=== PATIENT | female | born 1960 | race Caucasian/White ===

== ENCOUNTER 2023-05-11 13:29 | Emergency (ER) | payer MEDICARE, SELFPAY ==
[2023-05-11 13:33] VITALS: BP 146/89; PULSE 105; RESP 18; TEMP 36.6; O2SAT 97; BMI 22.0
--- NOTE | 2023-05-11 13:50 | CT_ITS ---
The [address] [address] Patient Name: SHAWNA SANTIAGO MRN: [id number] date: 1960 Sex: F Assigned Patient Location: ER Current Patient Location: ED.MAIN Accession/Order Number: [id number] Exam Date: 05/11/2023 13:45 Report Date: 05/11/2023 14:25 At the request of: RUCHI AGUIRRE Procedure: CT head/brain wo con EXAMINATION: CT head/brain wo con HISTORY: fell down 2 steps COMPARISON: None. TECHNIQUE: CT scan of the head was performed without IV contrast. CT dose reduction technique was used, including Automated Exposure Control. FINDINGS: There are no extra-axial fluid collections. There is no mass effect or midline shift. The cerebral ventricles and sulci are normal. The brain demonstrates normal attenuation. basal cisterns are patent. There is bilateral subcortical and deep periventricular white matter chronic microvascular ischemia. There is right frontal scalp edema and hematoma. Bilateral orbits, paranasal sinuses and mastoid air cells are patent. No skull base fracture. CT/CT head/brain wo con IMPRESSION: No intracranial hemorrhage. Right frontal scalp edema and hematoma. Electronically authenticated by: HOMER DELGADILLO Date: 05/11/2023 14:25
--- NOTE | 2023-05-11 14:13 | ED_ITS ---
HPI - Head Injury General Chief complaint: Head Injury Stated complaint: HEAD INJURY/ FALL Time Seen by Provider: 05/11/23 14:05 Source: patient and family Mode of arrival: Wheelchair Limitations: no limitations History of Present Illness HPI Narrative: patient is a 63-year-old female who presents to the emergency department for the evaluation of an injury to the head that occurred at home just prior to arrival. Patient has a history of neuropathy in her legs and states she was walking down her basement stairs when she missed the last two steps and fell forward, hitting her head. She presents with an abrasion to the nasal bridge and hematoma to the right frontal scalp with an associated abrasion. Unknown last tetanus. She takes aspirin daily but no other blood thinners. states she was walking right behind her, she did not have any loss of consciousness or altered mental status. She has been able to ambulate since falling. She denies any pain to the neck or back. No changes in her vision. She denies any other dental injury. no medications taken prior to arrival. Related Data Allergies Allergy/AdvReac Type Severity Reaction Status Date / Time No Known Drug Allergies Allergy Verified 05/11/23 13:39 Review of Systems ROS Constitutional Denies: fever or chills Eyes Denies: change in vision Ears, nose, mouth, and throat Denies: neck pain Cardiovascular Denies: chest pain Respiratory Denies: shortness of breath or cough Musculoskeletal Denies: back pain or neck pain Neurological Denies: headache Hematologic/Lymphatic Denies: easy bruising Exam Narrative Exam Narrative: Gen.: Awake, alert, in no distress Head: Normocephalic, atraumatic ENT: Moist mucous membranes with pupils equal round and reactive. Moderate hematoma to the right frontal scalp with central abrasion, no deep laceration and small abrasion noted to the nasal bridge between the eyes with no deep laceration or active bleeding. No injury to the mouth or jaw. C-spine is nontender with full range of motion Respiratory: No respiratory distress, lungs clear bilaterally Cardio: Regular rate and rhythm Back: no bony tenderness of the C-spine, T-spine or L-spine Extremities: Moves extremities equally, no injuries noted Psych: Normal mood and affect Neuro: No focal neuro deficit Skin: Warm, dry Constitutional Vital Signs, click to edit/add: Last Vital Signs Temp 97.8 F 05/11/23 13:33 Pulse 105 H 07/17/23 13:33 Resp 18 05/11/23 13:33 BP 146/89 H 05/11/23 13:33 Pulse Ox 97 05/11/23 13:33 O2 Del Method Room Air 05/11/23 13:33 Course Vital Signs Vital signs: Vital Signs Temperature 97.8 F 05/11/23 13:33 Pulse Rate 105 H 05/11/23 13:33 Respiratory Rate 18 05/11/23 13:33 Blood Pressure 146/89 H 05/11/23 13:33 Pulse Oximetry 97 05/11/23 13:33 Oxygen Delivery Method Room Air 05/11/23 13:33 Temperature 97.8 F 05/11/23 13:33 Pulse Rate 105 H 05/11/23 13:33 Respiratory Rate 18 05/11/23 13:33 Blood Pressure 146/89 H 05/11/23 13:33 Pulse Oximetry 97 05/11/23 13:33 Oxygen Delivery Method Room Air 05/11/23 13:33 MDM - Head Injury MDM Narrative Medical decision making narrative: patient was sent for CT of the brain from the [facility], on exam, she is awake and alert in no distress. She declined any medication for pain or nausea. Tetanus is updated in the Emergency Room for the abrasions to the scalp and nasal bridge. CT is unremarkable and the patient is discharged home with closed head injury instructions. Wound care encouraged. Bacitracin applied in the Emergency Room. Rest, ice to the area of injury to the frontal scalp. Tylenol as needed for home. Return to the Emergency Room if symptoms change or worsen Medical Records Attestation: I reviewed the patient's medical records. Imaging Data CT scan - head: Attestation: I have reviewed the pertinent imaging results. Radiologist's impression: Procedure: CT head/brain wo con EXAMINATION: CT head/brain wo con HISTORY: fell down 2 steps COMPARISON: None. TECHNIQUE: CT scan of the head was performed without IV contrast. CT dose reduction technique was used, including Automated Exposure Control. FINDINGS: There are no extra-axial fluid collections. There is no mass effect or midline shift. The cerebral ventricles and sulci are normal. The brain demonstrates normal attenuation. basal cisterns are patent. There is bilateral subcortical and deep periventricular white matter chronic microvascular ischemia. There is right frontal scalp edema and hematoma. Bilateral orbits, paranasal sinuses and mastoid air cells are patent. No skull base fracture. IMPRESSION: No intracranial hemorrhage. Right frontal scalp edema and hematoma. Electronically authenticated by: HOMER DELGADILLO Date: 05/11/2023 14:25 Discharge Plan Discharge Chief Complaint: Head Injury Clinical Impression: Closed head injury, Contusion of scalp, Abrasion Patient Disposition: Home, Self-Care Time of Disposition Decision: 14:32 Condition: Good Instructions: Head Injury (ED), Abrasion (ED), Scalp Contusion in Adults (ED) Stand Alone Forms: Portal Instructions Referrals: Physician,Non-Staff, MD [Primary Care Provider] - 1 week
[2023-05-11] MEDS: ADACEL DIPH,PERTUSS(ACELL),TET VAC/PF 0.5 ML ADULT SYRINGE IM (14:56)
[2023-05-11] MEDS: BACITRACIN 0.9 GM PACKET 1 PACKET TOPICAL (14:57)
== END 2023-05-11 15:11 | disposition home or self-care (01) ==
PROVIDERS: Emergency Provider Emergency Medicine
DX: S00.03XA Contusion of scalp, initial encounter (principal); S00.01XA Abrasion of scalp, initial encounter; S09.8XXA Other specified injuries of head, initial encounter; Z23 Encounter for immunization; W10.9XXA Fall (on) (from) unspecified stairs and steps, initial encounter; Z79.82 Long term (current) use of aspirin
CPT/HCPCS: 70450; 90471; 90715; 99285

== ENCOUNTER 2024-10-27 19:11 | Emergency (ER) | payer MEDICARE, SELFPAY ==
[2024-10-27] VITALS (28 sets, daily range): BP systolic 115–123; BP diastolic 58–62; PULSE 95–107; TEMP 36.5; O2SAT 99; BMI 25.3
--- NOTE | 2024-10-27 19:55 | ECG_ITS ---
The [facility] Test Date: 2024-10-27 Pat Name: SHAWNA SANTIAGO Department: Room: - Gender: Female Receptionist: : 1960 Requested By: [id number] Order Number: [id number] Reading MD: DELMY GUERRERO Measurements Intervals [place] Rate: 96 P: 47 LA: 162 QRS: -2 QRSD: 148 T: 155 QT: 416 QTc: 469 Interpretive Statements 1100 Sinus rhythm 2550 Left bundle branch block with secondary ST/T wave changes 9150 abnormal ECG No previous ECG available for comparison Electronically Signed On 10-27-2024 20:44:59 EST by DELMY GUERRERO
--- NOTE | 2024-10-27 19:55 | XR_ITS ---
The [address] [address] Patient Name: SHAWNA SANTIAGO MRN: [id number] date: 1960 Sex: F Assigned Patient Location: ER Current Patient Location: ED.MAIN Accession/Order Number: [id number] Exam Date: 10/27/2024 08:08 Report Date: 10/27/2024 21:39 At the request of: SHAHID DURAN Procedure: XR chest 1V EXAMINATION: XR chest 1V HISTORY: Shortness of breath COMPARISON: XR chest 09/23/2021 FINDINGS: LUNGS: Dense opacities partially obscuring the lower right hemithorax and the lower two thirds of the left hemithorax. VASCULATURE: No increased pulmonary vasculature. PLEURA: No pneumothorax, effusion, or pleural thickening. CARDIAC: No cardiomegaly or cardiac silhouette abnormality. MEDIASTINUM: Prior sternotomy. No abnormal widening. BONES: No fracture or visible bone lesion. OTHER: Negative. XR/XR chest 1V IMPRESSION: 1. Marked bilateral pulmonary infiltrates. This may be exaggerated by anterior soft tissue summation artifact. Consider CT chest if there remains clinical concern. Electronically authenticated by: TRUE MURPHY Date: 10/27/2024 21:39
--- NOTE | 2024-10-27 19:55 | CT_ITS ---
The [address] [address] Patient Name: SHAWNA SANTIAGO MRN: [id number] date: 1960 Sex: F Assigned Patient Location: ER Current Patient Location: Accession/Order Number: [id number] Exam Date: 10/27/2024 20:10 Report Date: 10/27/2024 21:42 At the request of: SHAHID DURAN Procedure: CT head/brain wo con EXAMINATION: CT head/brain wo con HISTORY: Hallucinations, hx metastatic CA COMPARISON: CT head 05/11/2023 TECHNIQUE: Axial CT images were obtained without IV contrast. Dose reduction techniques were achieved by using automated exposure control and/or adjustment of mA and/or kV according to patient size and/or use of iterative reconstruction technique. FINDINGS: BRAIN: No edema, hemorrhage, mass, acute infarction, or inappropriate atrophy. CSF SPACES: No hydrocephalus, subarachnoid hemorrhage, or mass. Appropriate for age. SKULL: No fracture, mass, or other significant visible lesion. SINUSES: No significant mucosal thickening or fluid on the limited views. ORBITS: No appreciable abnormality on the limited views. OTHER: Negative CT/CT head/brain wo con IMPRESSION: 1. No appreciable acute abnormality of the brain. 2. No CT evidence of metastatic disease. Electronically authenticated by: TRUE MURPHY Date: 10/27/2024 21:42
--- NOTE | 2024-10-27 20:02 | ED.GENADUL1 ---
Documented by User: RADHA Bedoya 10/27/24 22:33 HPI HPI - General Adult General Chief complaint: Shortness of Breath/Dyspnea Stated complaint: hallucinations Time Seen by Provider: 10/27/24 19:36 Source: patient and family Mode of arrival: Wheelchair Limitations: no limitations History of Present Illness HPI narrative: Patient is a 64-year-old female with a remote history of breast cancer who was not being treated for cancer up until 3 weeks ago when she started to develop jaundice. She was hospitalized in [facility]. She initially had an ultrasound of the liver, MRI of the abdomen and a CT scan. Patient was found to have metastatic disease of the liver. She had a follow-up MRCP this week while hospitalized that did not show any gallbladder disease or bile dilation. She continues to have progressive jaundice, decreased oral intake and shortness of breath on exertion. She had an ultrasound-guided biopsy of the liver performed while hospitalized, family is not aware of the results of this biopsy, they were supposed to see the doctor tomorrow. Since yesterday, patient has been having intermittent visual and auditory hallucinations. She occasionally has a mild headache but has not had any severe pain, visual changes, chest pain. She has not had any other recent illness. states that the patient has not been eating and drinking well. She has not had any urinary symptoms, vomiting or diarrhea. She had a bilateral mastectomy related to the breast cancer previously. Related Data Allergies Allergy/AdvReac Type Severity Reaction Status Date / Time adhesive tape AdvReac Mild Rash Verified 10/27/24 19:54 amlodipine AdvReac Mild rash Verified 10/27/24 19:54 clindamycin AdvReac Mild Rash Verified 10/27/24 19:54 piperacillin (From Zosyn) AdvReac Mild Rash Verified 10/27/24 19:54 tazobactam (From Zosyn) AdvReac Mild Rash Verified 10/27/24 19:54 vanadium AdvReac Unknown Uncoded 10/27/24 19:54 Opioid HPI Opioid Management Most Recent Opioid Data: Last Pain Scale 6 05/11/23 14:09 05/11/23 Review of Systems ROS Constitutional Denies: fever or chills Ears, nose, mouth, and throat Denies: throat pain or nasal congestion Cardiovascular Denies: chest pain Respiratory Reports: shortness of breath; Denies: cough Gastrointestinal Denies: abdominal pain, nausea, vomiting or diarrhea Integumentary/Breast Reports: changes in skin color and jaundice; Denies: rash Neurological Reports: headache; Denies: numbness in extremities, weakness in extremities or dizziness Psychiatric Reports: visual hallucinations and auditory hallucinations Hematologic/Lymphatic Denies: easy bruising or easy bleeding Exam Narrative Exam Narrative: Gen.: Awake, alert, in no distress, pleasant female noted to be jaundice with scleral icterus Head: Normocephalic, atraumatic ENT: Moist mucous membranes Respiratory: No respiratory distress, lungs clear bilaterally Cardio: Regular rate and rhythm Gastrointestinal: Abdomen is soft, nondistended and nontender to palpation; no ascites palpated Extremities: Moves extremities equally, no injuries noted Psych: Normal mood and affect Neuro: No focal neuro deficit Skin: Warm, dry, intact Constitutional Vital Signs, click to edit/add: Last Vital Signs Temp 97.7 F 10/27/24 19:24 Pulse 101 H 10/28/24 00:10 Resp 29 H 10/28/24 00:10 BP 115/58 10/27/24 23:30 Pulse Ox 99 10/27/24 19:24 O2 Del Method Room Air 10/27/24 19:24 Course Vital Signs Vital signs: Vital Signs Temperature 97.7 F 10/27/24 19:24 Pulse Rate 95 H 10/27/24 19:24 Respiratory Rate 18 10/27/24 19:24 Blood Pressure 115/59 10/27/24 19:24 Pulse Oximetry 99 10/27/24 19:24 Oxygen Delivery Method Room Air 10/27/24 19:24 Temperature 97.7 F 10/27/24 19:24 Pulse Rate 101 H 10/28/24 00:10 Respiratory Rate 29 H 10/28/24 00:10 Blood Pressure 115/58 10/27/24 23:30 Pulse Oximetry 99 10/27/24 19:24 Oxygen Delivery Method Room Air 10/27/24 19:24 Medical Decision Making MDM Narrative Medical decision making narrative: 2230: On arrival to the emergency department, patient is hemodynamically stable. Her at bedside has results from her MyChart in the [facility] system on his phone for me to review, this shows that in the last week, the patient has had an ultrasound of the abdomen, MRI of the abdomen, MRCP as well as a CT scan of the abdomen and pelvis and an ultrasound-guided biopsy. Patient's pathology report is on the phone as well which has not been reviewed by the patient or her family, this states that the patient has carcinoma in the liver, consistent with liver cancer and her jaundice. Ultrasound-guided IV was placed, however we had significant difficulty obtaining a blood draw for this patient. Attending physician was able to draw labs. The majority of the labs are pending at this time. Patient has no chest pain in the emergency department, however she is noted to have a left bundle branch block on her EKG with no previous comparison at this facility as well as infiltrates noted on the chest x-ray. CT of the brain with no evidence of metastasis. Radiology recommends a follow-up CT of the chest which is pending at this time after the patient's kidney function results. Anticipate this patient will require transfer back to the [facility] for further evaluation and treatment as a tertiary care setting. Patient is turned over to attending physician at this time. SHARED APC VISIT, PHYSICIAN ATTESTATION: [id number] I performed a substantive part of the MDM during the patient?s E/M visit. I personally evaluated and examined the patient. I personally made or approved the documented management plan and acknowledge its risk of complications. Medical Records Medical records reviewed: Yes I reviewed the patient's medical records Lab Data Lab results reviewed: Yes I reviewed the patient's lab results Labs: Lab Results 10/27/24 10/27/24 10/27/24 Range/Units 21:28 22:00 22:06 WBC 10.3 (4.0-11.0) 10^3/uL RBC 3.19 L (4.20-5.40) 10^6/uL Hgb 11.1 L (12.0-16.0) g/dL Hct 33.7 L (36.0-48.0) % MCV 105.6 H (81.0-99.0) fL MCH 34.8 H (26.7-34.0) pg MCHC 32.9 (29.9-35.2) g/dL RDW 19.1 H (11.0-15.0) % Plt Count 299 (150-450) 10^3/uL MPV 10.1 (9.5-13.5) fL Neut % (Auto) 77.9 H (43.0-75.0) % Lymph % (Auto) 12.5 L (20.5-60.0) % Camp % (Auto) 7.7 (1.7-12.0) % Eos % (Auto) 0.6 L (0.9-7.0) % Baso % (Auto) 0.2 (0.2-2.0) % Neut # (Auto) 8.0 H (1.4-6.5) 10^3/uL Lymph # (Auto) 1.3 (1.2-3.8) 10^3/uL Camp # (Auto) 0.8 (0.3-0.8) 10^3/uL Eos # (Auto) 0.1 (0.0-0.7) 10^3/uL Baso # (Auto) 0.0 (0.0-0.1) 10^3/uL Abs Immat Gran (auto) 0.11 H (0.00-0.03) 10^3/uL Imm/Tot Granulo (auto) 1.1 H (0.0-0.5) % PT 12.1 H (9.0-11.6) sec INR 1.16 APTT 28.0 (22.3-36.2) sec VBG pH 7.264 L (7.330-7.430) VBG pCO2 36.3 L (40.0-52.0) mmHg Sodium 130 L (136-145) mmol/L Potassium 6.1 H* (3.5-5.1) mmol/L Chloride 98 (98-107) mmol/L Carbon Dioxide 18.1 L (21.0-32.0) mmol/L Anion Gap 20.0 BUN 59.0 H (7.0-18.0) mg/dL Creatinine 2.12 H (0.55-1.02) mg/dL Est GFR ( Amer) 28 L (>=60 mL/min/1.73m^2) Est GFR (Non-Af Amer) 23 L (>=60 mL/min/1.73m^2) BUN/Creatinine Ratio 27.8 Glucose 82 (74-106) mg/dL Calcium 9.4 (8.5-10.1) mg/dL Total Bilirubin 19.1 H (0.2-1.0) mg/dL Direct Bilirubin 14.8 H* (0.0-0.2) mg/dL AST 452 H (15-37) U/L ALT 158 H (14-59) U/L Alkaline Phosphatase 954 H (46-116) U/L Ammonia 47 H* (11-32) umol/L Troponin I High Sens 21.9 (4.0-51.3) pg/mL NT-Pro-B Natriuret Pep 7412.0 H* (<=900.0) pg/mL Total Protein 6.2 L (6.4-8.2) g/dL Albumin 2.3 L (3.4-5.0) g/dL Globulin 3.9 g/dL Albumin/Globulin Ratio 0.6 Urine Color Dk. orange (YELLOW) Urine Clarity Clear (CLEAR) Urine pH 5.5 (5.0-9.0) Ur Specific [place] 1.025 (1.005-1.025) Urine Protein Trace (NEG/TRACE) mg/dL Urine Glucose (UA) Negative (NEGATIVE) mg/dL Urine Ketones Negative (NEGATIVE) mg/dL Urine Occult Blood Negative (NEGATIVE) Urine Nitrite Negative (NEGATIVE) Urine Bilirubin Large A (NEGATIVE) Urine Urobilinogen 1.0 (0.2-1.0) EU/dL Ur Leukocyte Esterase Trace A (NEGATIVE) Urine RBC None seen (0-2) #/HPF Urine WBC 2-5 A (NONE SEEN) #/HPF Ur Squamous Epith Cells Moderate A (NONE/RARE) #/LPF Urine Crystals None seen (None Seen) #/HPF Urine Bacteria Large A (NONE SEEN) #/HPF Urine Casts None seen (NONE SEEN) #/LPF Urine Mucus None seen (NONE SEEN) Ur Culture Indicated? Yes Imaging Data CT scan - head: Attestation: I have reviewed the pertinent imaging results. Radiologist's impression: ITS Impressions Chest X-Ray 10/27/24 19:55 IMPRESSION: 1. Marked bilateral pulmonary infiltrates. This may be exaggerated by anterior soft tissue summation artifact. Consider CT chest if there remains clinical concern. Electronically authenticated by: TRUE MURPHY Date: 10/27/2024 21:[address] 10/27/24 19:55 IMPRESSION: 1. No appreciable acute abnormality of the brain. 2. No CT evidence of metastatic disease. Electronically authenticated by: TRUE MURPHY Date: 10/27/2024 21:42 ECG Data Attestation: I personally reviewed and interpreted this ECG as follows: (Will sign this rhythm at a rate of 96 with a left bundle branch block, no previous EKG for comparison. No acute ST elevation or ectopy. EKG reviewed by attending physician) Discharge Plan Discharge Chief Complaint: Shortness of Breath/Dyspnea Clinical Impression: Hallucinations, Acute hepatic encephalopathy, Acute kidney injury, Hyperkalemia Patient Disposition: Home, Self-Care Time of Disposition Decision: 00:48 Print Language: Maldivian Instructions: Acute Kidney Injury (DC), Hepatic Encephalopathy (DC), Hyperkalemia (ED), Hallucinations (ED) Referrals: Physician,Non-Staff, MD [Primary Care Provider] - 1 week Documented by User: Cynthia Andrew MD 10/28/24 01:08 HPI HPI - General Adult General Chief complaint: Shortness of Breath/Dyspnea Stated complaint: hallucinations Time Seen by Provider: 10/27/24 19:36 Related Data Allergies Allergy/AdvReac Type Severity Reaction Status Date / Time adhesive tape AdvReac Mild Rash Verified 10/27/24 19:54 amlodipine AdvReac Mild rash Verified 10/27/24 19:54 clindamycin AdvReac Mild Rash Verified 10/27/24 19:54 piperacillin (From Zosyn) AdvReac Mild Rash Verified 10/27/24 19:54 tazobactam (From Zosyn) AdvReac Mild Rash Verified 10/27/24 19:54 vanadium AdvReac Unknown Uncoded 10/27/24 19:54 Opioid HPI Opioid Management Most Recent Opioid Data: Last Pain Scale 6 05/11/23 14:09 05/11/23 Exam Constitutional Vital Signs, click to edit/add: Last Vital Signs Temp 97.7 F 10/27/24 19:24 Pulse 101 H 10/28/24 00:10 Resp 29 H 10/28/24 00:10 BP 115/58 10/27/24 23:30 Pulse Ox 99 10/27/24 19:24 O2 Del Method Room Air 10/27/24 19:24 Course Vital Signs Vital signs: Vital Signs Temperature 97.7 F 10/27/24 19:24 Pulse Rate 95 H 10/27/24 19:24 Respiratory Rate 18 10/27/24 19:24 Blood Pressure 115/59 10/27/24 19:24 Pulse Oximetry 99 10/27/24 19:24 Oxygen Delivery Method Room Air 10/27/24 19:24 Temperature 97.7 F 10/27/24 19:24 Pulse Rate 101 H 10/28/24 00:10 Respiratory Rate 29 H 10/28/24 00:10 Blood Pressure 115/58 10/27/24 23:30 Pulse Oximetry 99 10/27/24 19:24 Oxygen Delivery Method Room Air 10/27/24 19:24 Medical Decision Making MDM Narrative Medical decision making narrative: 2230: On arrival to the emergency department, patient is hemodynamically stable. Her at bedside has results from her MyChart in the [facility] on his phone for me to review, this shows that in the last week, the patient has had an ultrasound of the abdomen, MRI of the abdomen, MRCP as well as a CT scan of the abdomen and pelvis and an ultrasound-guided biopsy. Patient's pathology report is on the phone as well which has not been reviewed by the patient or her family, this states that the patient has carcinoma in the liver, consistent with liver cancer and her jaundice. Ultrasound-guided IV was placed, however we had significant difficulty obtaining a blood draw for this patient. Attending physician was able to draw labs. The majority of the labs are pending at this time. Patient has no chest pain in the emergency department, however she is noted to have a left bundle branch block on her EKG with no previous comparison at this facility as well as infiltrates noted on the chest x-ray. CT of the brain with no evidence of metastasis. Radiology recommends a follow-up CT of the chest which is pending at this time after the patient's kidney function results. Anticipate this patient will require transfer back to the [facility] for further evaluation and treatment as a tertiary care setting. Patient is turned over to attending physician at this time. SHARED APC VISIT, PHYSICIAN ATTESTATION: [id number] I performed a substantive part of the MDM during the patient?s E/M visit. I personally evaluated and examined the patient. I personally made or approved the documented management plan and acknowledge its risk of complications. This patient was seen and evaluated in conjunction with the physician financial planning assistant. She presents for evaluation of hallucinations which have been intermittent. She has had 2 brief episodes of visual hallucinations while in the emergency department. Arterial blood was taken by myself for testing as blood draws through her IVs were difficult. The results of her labs from approximately 1 week ago are compared to the labs today. She has a stable hemoglobin of 11.1 and a white count of 10.3. Platelets are normal at 299 her sodium a week ago was 134 and potassium was 4.3. Chloride is 105 and CO2 is 18. BUN was 20 and creatinine was 1.2. Glucose at that time was 79. Her calcium at that time was 8.4 and bilirubin is 8.7. Her alkaline phosphatase was 866, ALT was 87 and AST is 218. Today her sodium is 130. Potassium is elevated at 6.1. Chloride was 98 Direct bilirubin is 14.8. Total bilirubin 19.1. Her AST today is 452, ALT is 158 and alkaline phosphatase is 954. Her ammonia was 47. Troponin was normal. BNP was elevated at 7412. The results of all of these laboratory findings and the differential tween the labs she had last week and today were discussed with the patient and her son, daughter and at bedside. I explained to him that she does appear to be in liver failure at this time as well as some degree of acute kidney injury. Is unclear if the kidney injury is related to her disease process or from MRIs and MRCP's and CT scans that she had last week. She was given mild fluids which seem to increase some dyspnea and were stopped. Her elevated potassium was treated with D50, insulin, bicarbonate and Kayexalate. She was also given 10 mg of IV Lasix for her fluid overload. I had a lengthy discussion with the family and they request that the patient be released home tonight because she has an appointment tomorrow to find out the results of her biopsy. The patient's states that they have been waiting for this appointment for several weeks and it is important to them that they get seen by oncology with a diagnosis and recommendations for further treatment options. The patient will be given a copy of her labs to take to her visit tomorrow. Family was encouraged to return her to the emergency department for worsening symptoms or any concerns. She will be discharged home with a prescription for Kayexalate. Lab Data Labs: Lab Results 10/27/24 10/27/24 10/27/24 Range/Units 21:28 22:00 22:06 WBC 10.3 (4.0-11.0) 10^3/uL RBC 3.19 L (4.20-5.40) 10^6/uL Hgb 11.1 L (12.0-16.0) g/dL Hct 33.7 L (36.0-48.0) % MCV 105.6 H (81.0-99.0) fL MCH 34.8 H (26.7-34.0) pg MCHC 32.9 (29.9-35.2) g/dL RDW 19.1 H (11.0-15.0) % Plt Count 299 (150-450) 10^3/uL MPV 10.1 (9.5-13.5) fL Neut % (Auto) 77.9 H (43.0-75.0) % Lymph % (Auto) 12.5 L (20.5-60.0) % Camp % (Auto) 7.7 (1.7-12.0) % Eos % (Auto) 0.6 L (0.9-7.0) % Baso % (Auto) 0.2 (0.2-2.0) % Neut # (Auto) 8.0 H (1.4-6.5) 10^3/uL Lymph # (Auto) 1.3 (1.2-3.8) 10^3/uL Camp # (Auto) 0.8 (0.3-0.8) 10^3/uL Eos # (Auto) 0.1 (0.0-0.7) 10^3/uL Baso # (Auto) 0.0 (0.0-0.1) 10^3/uL Abs Immat Gran (auto) 0.11 H (0.00-0.03) 10^3/uL Imm/Tot Granulo (auto) 1.1 H (0.0-0.5) % PT 12.1 H (9.0-11.6) sec INR 1.16 APTT 28.0 (22.3-36.2) sec VBG pH 7.264 L (7.330-7.430) VBG pCO2 36.3 L (40.0-52.0) mmHg Sodium 130 L (136-145) mmol/L Potassium 6.1 H* (3.5-5.1) mmol/L Chloride 98 (98-107) mmol/L Carbon Dioxide 18.1 L (21.0-32.0) mmol/L Anion Gap 20.0 BUN 59.0 H (7.0-18.0) mg/dL Creatinine 2.12 H (0.55-1.02) mg/dL Est GFR ( Amer) 28 L (>=60 mL/min/1.73m^2) Est GFR (Non-Af Amer) 23 L (>=60 mL/min/1.73m^2) BUN/Creatinine Ratio 27.8 Glucose 82 (74-106) mg/dL Calcium 9.4 (8.5-10.1) mg/dL Total Bilirubin 19.1 H (0.2-1.0) mg/dL Direct Bilirubin 14.8 H* (0.0-0.2) mg/dL AST 452 H (15-37) U/L ALT 158 H (14-59) U/L Alkaline Phosphatase 954 H (46-116) U/L Ammonia 47 H* (11-32) umol/L Troponin I High Sens 21.9 (4.0-51.3) pg/mL NT-Pro-B Natriuret Pep 7412.0 H* (<=900.0) pg/mL Total Protein 6.2 L (6.4-8.2) g/dL Albumin 2.3 L (3.4-5.0) g/dL Globulin 3.9 g/dL Albumin/Globulin Ratio 0.6 Urine Color Dk. orange (YELLOW) Urine Clarity Clear (CLEAR) Urine pH 5.5 (5.0-9.0) Ur Specific [place] 1.025 (1.005-1.025) Urine Protein Trace (NEG/TRACE) mg/dL Urine Glucose (UA) Negative (NEGATIVE) mg/dL Urine Ketones Negative (NEGATIVE) mg/dL Urine Occult Blood Negative (NEGATIVE) Urine Nitrite Negative (NEGATIVE) Urine Bilirubin Large A (NEGATIVE) Urine Urobilinogen 1.0 (0.2-1.0) EU/dL Ur Leukocyte Esterase Trace A (NEGATIVE) Urine RBC None seen (0-2) #/HPF Urine WBC 2-5 A (NONE SEEN) #/HPF Ur Squamous Epith Cells Moderate A (NONE/RARE) #/LPF Urine Crystals None seen (None Seen) #/HPF Urine Bacteria Large A (NONE SEEN) #/HPF Urine Casts None seen (NONE SEEN) #/LPF Urine Mucus None seen (NONE SEEN) Ur Culture Indicated? Yes Imaging Data CT scan - head: Radiologist's impression: ITS Impressions Chest X-Ray 10/27/24 19:55 IMPRESSION: 1. Marked bilateral pulmonary infiltrates. This may be exaggerated by anterior soft tissue summation artifact. Consider CT chest if there remains clinical concern. Electronically authenticated by: TRUE MURPHY Date: 10/27/2024 21:[address] 10/27/24 19:55 IMPRESSION: 1. No appreciable acute abnormality of the brain. 2. No CT evidence of metastatic disease. Electronically authenticated by: TRUE MURPHY Date: 10/27/2024 21:42 Critical Care Time Critical Care Time Critical Care Time: Yes Total Critical Care Time: 35 Attestation: Critical care time including laboratory evaluation and comparison with prior labs, discussion with family regarding laboratory abnormalities, consultation with family regarding disposition, treatment of hyperkalemia. Continuous monitoring in the emergency department during treatment and evaluation Discharge Plan Discharge Chief Complaint: Shortness of Breath/Dyspnea Clinical Impression: Hallucinations, Acute hepatic encephalopathy, Acute kidney injury, Hyperkalemia Patient Disposition: Home, Self-Care Time of Disposition Decision: 00:48 Print Language: Maldivian Instructions: Acute Kidney Injury (DC), Hepatic Encephalopathy (DC), Hyperkalemia (ED), Hallucinations (ED) Referrals: Physician,Non-Staff, MD [Primary Care Provider] - 1 week
[2024-10-27 22:06] LABS: Basophils Percent Auto 0.2 % (0.2-2.0); Eosinophils Absolute Auto 0.1 10^3/uL (0.0-0.7); Eosinophils Percent Auto 0.6 % (0.9-7.0); Hematocrit 33.7 % (36.0-48.0); Hemoglobin 11.1 g/dL (12.0-16.0); Immature Granulocytes Abs Auto 0.11 10^3/uL (0.00-0.03); Immature Granulocytes Pct Auto 1.1 % (0.0-0.5); Lymphocytes Absolute Auto 1.3 10^3/uL (1.2-3.8); Lymphocytes Percent Auto 12.5 % (20.5-60.0); Mean Corpuscular HGB Conc 32.9 g/dL (29.9-35.2); Mean Corpuscular Hemoglobin 34.8 pg (26.7-34.0); Mean Corpuscular Volume 105.6 fL (81.0-99.0); Mean Platelet Volume 10.1 fL (9.5-13.5); Monocytes Absolute Auto 0.8 10^3/uL (0.3-0.8); Monocytes Percent Auto 7.7 % (1.7-12.0); Neutrophils Percent Auto 77.9 % (43.0-75.0); Platelet Count 299 10^3/uL (150-450); Red Blood Count 3.19 10^6/uL (4.20-5.40); Red Cell Distribution Width 19.1 % (11.0-15.0); White Blood Count 10.3 10^3/uL (4.0-11.0)
[2024-10-27] MEDS: 0.9 % SODIUM CHLORIDE 1,000 ML 200 ML IV (22:10)
[2024-10-27 22:19] LABS: PCO2 VBG 36.3 mmHg (40.0-52.0); pH VBG 7.264 (7.330-7.430)
[2024-10-27 22:21] LABS: Troponin I High Sensitivity 21.9 pg/mL (4.0-51.3)
[2024-10-27 22:27] LABS: Albumin Globulin Ratio 0.6; Albumin Level 2.3 g/dL (3.4-5.0); Alkaline Phosphatase 954 U/L (46-116); BUN Creatinine Ratio 27.8; Bilirubin Total 19.1 mg/dL (0.2-1.0); Calcium 9.4 mg/dL (8.5-10.1); Carbon Dioxide 18.1 mmol/L (21.0-32.0); Chloride 98 mmol/L (98-107); Estimated GFR (African America 28 (>=60 mL/min/1.73m^2); Estimated GFR (Non-African Ame 23 (>=60 mL/min/1.73m^2); Globulin 3.9 g/dL; Sodium 130 mmol/L (136-145)
[2024-10-27 22:31] LABS: INR 1.16; Prothrombin Time 12.1 sec (9.0-11.6)
[2024-10-27 22:48] LABS: Bilirubin Direct 14.8 mg/dL (0.0-0.2)
[2024-10-27 22:50] LABS: Glucose 82 mg/dL (74-106)
[2024-10-27 22:51] LABS: Total Protein 6.2 g/dL (6.4-8.2)
[2024-10-27 22:53] LABS: Aspartate Amino Transferase 452 U/L (15-37)
[2024-10-27 22:54] LABS: Potassium 6.1 mmol/L (3.5-5.1)
[2024-10-27 22:56] LABS: Alanine Aminotransferase 158 U/L (14-59)
[2024-10-27 22:57] LABS: Ammonia 47 umol/L (11-32)
[2024-10-27 23:06] LABS: Bilirubin Urine LARGE (NEGATIVE); Blood Urine NEGATIVE (NEGATIVE); Clarity Urine CLEAR (CLEAR); Color Urine DK. ORANGE (YELLOW); Glucose Urine UA NEGATIVE (NEGATIVE); Ketones Urine NEGATIVE (NEGATIVE); Leukocyte Esterase Urine TRACE (NEGATIVE); Nitrite Urine NEGATIVE (NEGATIVE); Protein Urine TRACE mg/dL (NEG/TRACE); Specific Gravity Urine 1.025 (1.005-1.025); pH Urine 5.5 (5.0-9.0)
[2024-10-28] VITALS: PULSE 105
[2024-10-28 00:01] LABS: Cast Seen? NONE SEEN #/LPF (NONE SEEN); Crystals Seen? None Seen #/HPF (None Seen); Mucus Urine NONE SEEN (NONE SEEN); RBC Urine NONE SEEN #/HPF (0-2); Squamous Epithelial Cell Urine MODERATE #/LPF (NONE/RARE)
[2024-10-28 00:04] LABS: Bacteria Urine LARGE #/HPF (NONE SEEN)
[2024-10-28 00:05] LABS: Urine Culture Indicated YES
[2024-10-28] MEDS: SODIUM POLYSTYRENE SULFON 15 GM/60 ML ORAL.SUSP KAYEXALATE 30 GM PO (00:05)
[2024-10-28] MEDS: LACTULOSE 10 GM/15 ML UD CUP 30 GM PO (00:05)
[2024-10-28] MEDS: DEXTROSE 50 %-WATER 25 GM/50 ML SYRINGE 25 ML IV (00:06)
[2024-10-28] MEDS: SODIUM BICARBONATE 8.4 % 50 MEQ/50 ML SYRINGE 25 MEQ IV (00:06)
[2024-10-28] MEDS: INSULIN REGULAR, HUMAN (100 UNIT/ML) 10 ML MDV 10 UNIT IV (00:07)
[2024-10-28 00:10] VITALS: PULSE 101
[2024-10-28] MEDS: FUROSEMIDE 20 MG/2 ML VIAL 10 MG IVP (00:57)
[2024-10-28 05:11] LABS: BOX Test Reference Lab FRMC; BOX Test Sent Out URINE CX
== END 2024-10-28 01:11 | disposition home or self-care (01) ==
PROVIDERS: Physician Assistant; Emergency Provider Emergency Medicine
DX: N17.9 Acute kidney failure, unspecified (principal); R44.1 Visual hallucinations; C50.919 Malignant neoplasm of unspecified site of unspecified female breast; K76.82 Hepatic encephalopathy; E87.5 Hyperkalemia; C78.7 Secondary malignant neoplasm of liver and intrahepatic bile duct; R06.02 Shortness of breath; R44.0 Auditory hallucinations; Z90.13 Acquired absence of bilateral breasts and nipples; R82.998 Other abnormal findings in urine
CPT/HCPCS: 36415; 70450; 71045; 80048; 80053; 80076; 81001; 82140; 82800; 83880; 84484; 85025; 85610; 85730; 87086; 87150; 87186; 93005; 96374; 96375; 99285; J1817; J1940